=== PATIENT | female | born 1985 | race Caucasian/White ===

== ENCOUNTER 2022-07-22 16:38 | Outpatient (CLI) | payer BC, SELFPAY ==
--- NOTE | 2022-07-22 17:00 | CRLHL7_ITS ---
For Patients: As a result of the Century Cures Act, medical imaging exams and procedure reports are released immediately into your electronic medical record. You may view this report before your referring provider. If you have questions, please contact your health care provider. CLINICAL HISTORY: MENORRHAGIA Comparison: 02/21/2019 TECHNIQUE: 2D villafuerte scale and color Doppler images were acquired of the pelvis using a transvaginal approach. FINDINGS: On transvaginal imaging, the myometrium has a normal uniform echotexture. The uterus measures 8.2 x 4.5 x 6.8 cm. The endometrial lining measures 9 mm in thickness. The left ovary measures 3.8 x 2.0 x 3.1 cm in size and the right ovary measures 3.5 x 2.4 x 2.6 cm. The ovaries demonstrate normal arterial and venous blood flow on color Doppler analysis. There are no suspicious fluid collections within the cul-de-sac. IMPRESSION: Endometrial thickness 9 millimeters. No endometrial fluid. No uterine fibroid. Dictated by Nick Monsivais MD @ 07/23/2022 10:47:39 AM (Electronically Signed)
== END 2022-07-22 16:39 | disposition home or self-care (01) ==
LOC: US 16:39
PROVIDERS: PCP Family Medicine; Visit Provider Obstetrics & Gynecology
DX: N92.0 Excessive and frequent menstruation with regular cycle (principal); R93.89 Abnormal findings on diagnostic imaging of other specified body structures
CPT/HCPCS: 76830

== ENCOUNTER 2022-09-18 09:07 | Outpatient (CLI) | payer BC, SELFPAY | END 2022-09-18 09:08 | disposition home or self-care (01) | PROVIDERS: PCP Family Medicine; Visit Provider Family Medicine | DX: Z01.419 Encounter for gynecological examination (general) (routine) without abnormal findings (principal); N92.0 Excessive and frequent menstruation with regular cycle; F41.9 Anxiety disorder, unspecified; F32.A Depression, unspecified; G43.909 Migraine, unspecified, not intractable, without status migrainosus | CPT/HCPCS: 80053; 82306 ==

== ENCOUNTER 2023-08-27 08:56 | Outpatient (CLI) | payer BC, SELFPAY | END 2023-08-27 08:57 | disposition home or self-care (01) | PROVIDERS: PCP Family Medicine; Visit Provider Family Medicine | DX: Z00.00 Encounter for general adult medical examination without abnormal findings (principal); F41.9 Anxiety disorder, unspecified; G43.909 Migraine, unspecified, not intractable, without status migrainosus; I10 Essential (primary) hypertension; N92.0 Excessive and frequent menstruation with regular cycle | CPT/HCPCS: 80048; 80061 ==

== ENCOUNTER 2024-09-04 09:49 | Outpatient (CLI) | payer BC, SELFPAY | END 2024-09-04 09:50 | disposition home or self-care (01) | LOC: NFLDREF 09:51 | PROVIDERS: PCP Family Medicine; Visit Provider Obstetrics & Gynecology | DX: N92.6 Irregular menstruation, unspecified (principal) | CPT/HCPCS: 84443 ==

== ENCOUNTER 2024-12-05 07:19 | Outpatient (CLI) | payer BC, SELFPAY | END 2024-12-05 07:20 | disposition home or self-care (01) | LOC: NFLDREF 12-08 09:01 | PROVIDERS: PCP Family Medicine; Referring Provider Family Medicine; Visit Provider Family Medicine | DX: Z00.00 Encounter for general adult medical examination without abnormal findings (principal); F32.A Depression, unspecified; F41.9 Anxiety disorder, unspecified; Z13.6 Encounter for screening for cardiovascular disorders | CPT/HCPCS: 80048; 80061 ==